=== PATIENT | male | born 1945 | race Asian ===

== ENCOUNTER 2021-04-20 21:40 | Inpatient (IN) | payer OTHER, MEDICARE ==
[2021-04-20 22:44] LABS: Hemoglobin 16.7 g/dL (13.5-17.5); Mean Corpuscular HGB CONC 32.2 g/dL (32.0-36.0); Mean Corpuscular Hemoglobin 30.4 pg (27.0-33.0); Mean Corpuscular Volume 94.4 fl (81.2-95.1); Mean Platelet Volume 8.4 fl (7.4-10.4); Platelet Count 256 10x3/uL (150-450); RBC Distribution Width 13.7 % (11.5-14.5); White Blood Cell (WBC) Count 9.6 10x3/uL (3.5-10.5)
[2021-04-20 22:52] LABS: ALT (SGPT) 32 U/L (8-55); AST (SGOT) 35 U/L (5-34); Albumin 4.9 g/dL (3.4-4.8); Alkaline Phosphatase 110 U/L (40-110); Anion Gap 22 mmol/L (10-20); BUN (Urea Nitrogen) 33 mg/dL (8.4-25.7); CK (CPK) 203 U/L (30-200); Calc. Creatinine Clearance 0 mL/min (70-130); Calcium 10.1 mg/dL (7.8-10.44); Carbon Dioxide 21 mmol/L (23-31); Chloride 100 mmol/L (98-107); Globulin 3.3 g/dL (2.4-3.5); Glucose 233 mg/dL (83-110); Potassium 4.1 mmol/L (3.5-5.1); Protein, Total 8.2 g/dL (5.8-8.1); Sodium 139 mmol/L (136-145)
[2021-04-20 23:09] LABS: MDiff Complete? YES
[2021-04-20 23:13] LABS: Band 27 % (5-11); Eosinophils 1 % (0-10); Lymphocytes 4 % (21-51); Monocytes 7 % (0-10); Neutrophil 61 % (42-75)
[2021-04-20 23:14] LABS: Platelet Morphology Comment Appears Adequate; RBC Morphology Normal
[2021-04-21] MEDS ORDERED: metroNIDAZOLE 500 MG/100 ML BAG ONE (00:30)
[2021-04-21 01:49] LABS: Lactic Acid 3.7 mmol/L (0.5-2.2)
[2021-04-21] MEDS ORDERED: Ondansetron PF 4 MG/2 ML Vial IVP PRN (02:41)
[2021-04-21] MEDS ORDERED: HumaLOG 300 UNITS/3 ML VIAL SC PRN (02:49)
[2021-04-21] MEDS ORDERED: Dextrose 5% in Water 1,000 ML IV PRN (02:49)
[2021-04-21] MEDS ORDERED: Dextrose 50% Abboject 50 ML SYRINGE SLOW IVP PRN (02:49)
[2021-04-21] MEDS ORDERED: Sodium Chloride 0.9% 500 ML IV SCH (03:30)
[2021-04-21] MEDS: Sodium Chloride 0.9% 1,000 ML IV SCH ×4 (04:35→21:00)
[2021-04-21] MEDS ORDERED: FLU VACC QS2021-22(65YR UP)/PF 240 MCG/0.7 ML SYRINGE IM ONE (05:15)
[2021-04-21 09:05] LABS: Hemoglobin 13.7 g/dL (13.5-17.5); Mean Corpuscular HGB CONC 32.4 g/dL (32.0-36.0); Mean Corpuscular Hemoglobin 30.7 pg (27.0-33.0); Mean Corpuscular Volume 94.8 fl (81.2-95.1); Mean Platelet Volume 8.6 fl (7.4-10.4); Platelet Count 222 10x3/uL (150-450); Red Blood Cell (RBC) Count 4.46 10x6/uL (4.32-5.72); White Blood Cell (WBC) Count 14.3 10x3/uL (3.5-10.5)
[2021-04-21 09:12] LABS: MDiff Complete? YES
[2021-04-21 09:15] LABS: Lymphocytes 4 % (21-51); Neutrophil 60 % (42-75); Nucleated RBC 1 % (0)
[2021-04-21 09:16] LABS: Anion Gap 16 mmol/L (10-20); BUN (Urea Nitrogen) 33 mg/dL (8.4-25.7); Calc. Creatinine Clearance 43 mL/min (70-130); Calcium 7.9 mg/dL (7.8-10.44); Carbon Dioxide 20 mmol/L (23-31); Chloride 108 mmol/L (98-107); Glucose 173 mg/dL (83-110); Potassium 4.4 mmol/L (3.5-5.1); Sodium 140 mmol/L (136-145)
[2021-04-21] MEDS: Enoxaparin Sodium 30 MG/0.3 ML SYRINGE SC SCH (09:21)
[2021-04-21] MEDS: metroNIDAZOLE 500 MG in Premix Bag 1 BAG IVPB SCH ×2 (09:21→16:26)
[2021-04-21 09:25] LABS: Band 21 % (5-11); Monocytes 15 % (0-10)
[2021-04-21 09:27] LABS: Platelet Morphology Comment Appears Adequate
[2021-04-21 09:29] LABS: RBC Morphology Normal
[2021-04-21 14:42] LABS: SARS-CoV-2 PCR by NAA Not Detected (NotDetected)
[2021-04-22] MEDS: metroNIDAZOLE 500 MG in Premix Bag 1 BAG IVPB SCH ×4 (00:16→23:20)
[2021-04-22] MEDS: Sodium Chloride 0.9% 1,000 ML IV SCH ×5 (03:48→22:00)
[2021-04-22 05:09] LABS: Hemoglobin 11.6 g/dL (13.5-17.5); Mean Corpuscular HGB CONC 31.6 g/dL (32.0-36.0); Mean Corpuscular Hemoglobin 30.5 pg (27.0-33.0); Mean Corpuscular Volume 96.6 fl (81.2-95.1); Mean Platelet Volume 8.7 fl (7.4-10.4); Platelet Count 181 10x3/uL (150-450); RBC Distribution Width 14.5 % (11.5-14.5); White Blood Cell (WBC) Count 11.1 10x3/uL (3.5-10.5)
[2021-04-22 05:24] LABS: MDiff Complete? YES
[2021-04-22] MEDS: Azithromycin 500 MG in Sodium Chloride 0.9% 250 ML 250 ML IVPB SCH (05:34)
[2021-04-22 06:02] LABS: Band 15 % (5-11); Eosinophils 1 % (0-10); Lymphocytes 9 % (21-51); Monocytes 14 % (0-10); Neutrophil 61 % (42-75)
[2021-04-22 06:05] LABS: Platelet Morphology Comment Appears Adequate; RBC Morphology Normal
[2021-04-22 07:06] LABS: ALT (SGPT) 25 U/L (8-55); AST (SGOT) 21 U/L (5-34); Alkaline Phosphatase 48 U/L (40-110); Anion Gap 10 mmol/L (10-20); BUN (Urea Nitrogen) 25 mg/dL (8.4-25.7); Bilirubin, Total 0.6 mg/dL (0.2-1.2); Calc. Creatinine Clearance 50 mL/min (70-130); Calcium 7.1 mg/dL (7.8-10.44); Carbon Dioxide 21 mmol/L (23-31); Chloride 115 mmol/L (98-107); Globulin 1.6 g/dL (2.4-3.5); Glucose 123 mg/dL (83-110); Potassium 3.8 mmol/L (3.5-5.1); Protein, Total 4.6 g/dL (5.8-8.1); Sodium 142 mmol/L (136-145)
[2021-04-22] MEDS: Enoxaparin Sodium 30 MG/0.3 ML SYRINGE SC SCH (09:59)
[2021-04-23] MEDS ORDERED: Furosemide 20 MG/2 ML VIAL SLOW IVP SCH (03:15)
[2021-04-23 05:03] LABS: Hemoglobin 12.4 g/dL (13.5-17.5); Mean Corpuscular HGB CONC 31.5 g/dL (32.0-36.0); Mean Corpuscular Hemoglobin 30.3 pg (27.0-33.0); Mean Corpuscular Volume 96.3 fl (81.2-95.1); Mean Platelet Volume 8.6 fl (7.4-10.4); Platelet Count 182 10x3/uL (150-450); RBC Distribution Width 14.4 % (11.5-14.5); Red Blood Cell (RBC) Count 4.09 10x6/uL (4.32-5.72); White Blood Cell (WBC) Count 8.3 10x3/uL (3.5-10.5)
[2021-04-23 05:20] LABS: ALT (SGPT) 24 U/L (8-55); AST (SGOT) 18 U/L (5-34); Albumin 3.2 g/dL (3.4-4.8); Alkaline Phosphatase 55 U/L (40-110); Anion Gap 11 mmol/L (10-20); BUN (Urea Nitrogen) 11 mg/dL (8.4-25.7); Bilirubin, Total 0.6 mg/dL (0.2-1.2); Calc. Creatinine Clearance 57 mL/min (70-130); Calcium 7.6 mg/dL (7.8-10.44); Carbon Dioxide 20 mmol/L (23-31); Chloride 116 mmol/L (98-107); Globulin 2.1 g/dL (2.4-3.5); Glucose 113 mg/dL (83-110); Potassium 4.3 mmol/L (3.5-5.1); Protein, Total 5.3 g/dL (5.8-8.1); Sodium 143 mmol/L (136-145)
[2021-04-23 05:29] LABS: Iron 62 ug/dL (65-175); Iron Binding Capacity, Total 270 mcg/dL (261-462)
[2021-04-23] MEDS: Azithromycin 500 MG in Sodium Chloride 0.9% 250 ML 250 ML IVPB SCH (05:30)
[2021-04-23 05:58] LABS: MDiff Complete? YES
[2021-04-23 06:01] LABS: Band 9 % (5-11); Eosinophils 3 % (0-10); Lymphocytes 20 % (21-51); Monocytes 5 % (0-10); Neutrophil 63 % (42-75)
[2021-04-23 06:05] LABS: Platelet Morphology Comment Appears Adequate; RBC Morphology Normal
[2021-04-23] MEDS ORDERED: Enoxaparin Sodium 30 MG/0.3 ML SYRINGE ONE (08:49)
[2021-04-23] MEDS ORDERED: Losartan 25 MG TAB PO SCH (09:00)
[2021-04-23] MEDS ORDERED: Finasteride 5 MG TAB PO SCH (09:00)
[2021-04-23] MEDS ORDERED: Rosuvastatin 20 MG TAB PO SCH (09:00)
[2021-04-23] MEDS: Enoxaparin Sodium 30 MG/0.3 ML SYRINGE SC SCH (09:09)
[2021-04-23] MEDS: metroNIDAZOLE 500 MG in Premix Bag 1 BAG IVPB SCH (09:10)
[2021-04-23] MEDS: Sodium Chloride 0.9% 1,000 ML IV SCH (09:25)
[2021-04-23 12:26] VITALS: BP 126/85; TEMP 97.9
== END 2021-04-23 14:50 | disposition home or self-care (01) | DRG 918 ==
LOC: CSHERS 21:40 → CSHTELE 04-21 03:06
PROVIDERS: ADMIT Family Medicine; ATTEND Internal Medicine
DX: T62.0X1A Toxic effect of ingested mushrooms, accidental (unintentional), initial encounter (principal); N17.9 Acute kidney failure, unspecified; E87.2 Acidosis; A04.5 Campylobacter enteritis; E11.9 Type 2 diabetes mellitus without complications; E86.1 Hypovolemia; E86.0 Dehydration; D64.9 Anemia, unspecified; Z79.899 Other long term (current) drug therapy; Z90.49 Acquired absence of other specified parts of digestive tract; Y92.59 Other trade areas as the place of occurrence of the external cause
CPT/HCPCS: 36415; 36416; 74176; 80048; 80053; 82550; 82728; 83540; 83550; 83605; 83630; 83735; 84484; 85025; 86403; 87040; 87045; 87046; 87177; 87324; 87427; 87449; 93005; 96365; J0456; J0744; J1650; J1815; J1940; J2405; J7030; J7050; U0003; U0005

== ENCOUNTER 2023-01-17 10:10 | Emergency (ER) | payer MEDICARE, OTHER | END 2023-01-17 11:57 | disposition home or self-care (01) | LOC: CSHERS 10:10 | DX: L25.9 Unspecified contact dermatitis, unspecified cause (principal); E11.9 Type 2 diabetes mellitus without complications | CPT/HCPCS: 93005 ==

== ENCOUNTER 2023-04-05 23:33 | Emergency (ER) | payer MEDICARE, OTHER ==
[2023-04-06] MEDS ORDERED: HYDROcodone/Acetaminophen 5/325 mg Tablet ONE (01:27)
== END 2023-04-06 02:36 | disposition home or self-care (01) ==
LOC: CSHERS 23:33
DX: M17.11 Unilateral primary osteoarthritis, right knee (principal); E11.9 Type 2 diabetes mellitus without complications

== ENCOUNTER 2025-04-30 10:39 | Outpatient (CLI) | payer MEDICARE, OTHER | END 2025-04-30 10:40 | disposition home or self-care (01) | LOC: CSHMRI 10:39 | PROVIDERS: ATTEND Family Medicine | DX: M47.22 Other spondylosis with radiculopathy, cervical region (principal); M48.02 Spinal stenosis, cervical region | CPT/HCPCS: 72141 ==